=== PATIENT | female | born 1985 | race American Indian/Alaskan Native ===

== ENCOUNTER 2018-06-04 21:10 | Emergency (ER) | payer OTHER ==
[2018-06-04 21:33] VITALS: BP 118/80; PULSE 96; RESP 18; TEMP 97.9; O2SAT 98
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
--- NOTE | 2018-06-05 10:02 | RAD ---
Date of service: 06/04/2018 PROCEDURE: Radiographs of the Lumbar Spine. HISTORY: low back pain COMPARISON: No prior. FINDINGS: BONES: Vertebral bodies maintained in height. Mild dextroscoliotic curvature. Transverse processes and posterior elements are intact. Normal alignment maintained. DISC SPACES: Unremarkable. OTHER FINDINGS: None. IMPRESSION: Mild dextroscoliosis. Otherwise unremarkable.
--- NOTE | 2018-06-05 10:02 | RAD ---
Date of service: 06/04/2018 PROCEDURE: Cervical Spine Radiographs. HISTORY: Pain. COMPARISON: None available. FINDINGS: BONES: Vertebral bodies maintained in height. No listhesis. Straightening of the normal lordotic curvature of the cervical spine is noted, indicative of possible muscular spasm. The atlantoaxial articulation and odontoid process are intact. DISC SPACES: Normal. SOFT TISSUES: Normal. No prevertebral soft tissue swelling. OTHER FINDINGS: None. IMPRESSION: Possible muscular spasm. No evidence of fracture or dislocation.
== END 2018-06-04 23:08 | disposition home or self-care (01) ==
LOC: C.ER 21:10 → SUPCPDRO 21:10 → C.ER 23:08
DX: S39.012A Strain of muscle, fascia and tendon of lower back, initial encounter (principal); S16.1XXA Strain of muscle, fascia and tendon at neck level, initial encounter; V43.53XA Car driver injured in collision with pick-up truck in traffic accident, initial encounter; Y92.89 Other specified places as the place of occurrence of the external cause